=== PATIENT | female | born 1995 | race Caucasian/White ===

== ENCOUNTER 2023-06-03 17:00 | Emergency (ER) | payer MEDICAID, SELFPAY ==
[2023-06-03 17:01] VITALS: BP 125/77; PULSE 87; RESP 18; TEMP 36.3; O2SAT 99
[2023-06-03 17:02] VITALS: BMI 25.9
--- NOTE | 2023-06-03 17:05 | RAD_ITS ---
STUDY: X-RAY - RIGHT ANKLE REASON FOR EXAM: Female, 27 years old. FALL TECHNIQUE: 3 view(s) of the ankle. COMPARISON: None. FINDINGS: Normal visualized distal tibia and fibula. Normal medial and lateral malleoli. Normal tibiotalar articulation and ankle mortise. Normal visualized talus and calcaneus. The visualized subtalar, talonavicular, calcaneocuboid and tarsal articulations are normal. There is no demonstrated fracture. Moderate lateral soft tissue swelling. RAD/Ankle min 3 Views IMPRESSION: No fracture or dislocation. Electronically Signed: Raul Mcmillan MD at 17:17 EDT ,
--- NOTE | 2023-06-03 18:06 | ED.VIS.LOWEX ---
HPI History of Present Illness HPI Narrative: Stepped and twisted her right ankle complaining of pain and swelling at the right lateral ankle since about 3 PM. No prior history of surgery. No other complaints. Chief Complaint: Lower Extremity Injury Informant: patient Occured/Mechanism Mechanism/Context: Yes injury and Yes blunt trauma Onset/Context/Timing Onset: Today Context: Sudden Onset Timing: Continuous Quality of Pain: Dull and Aching Current Severity: Moderate Maximum Severity: Moderate Associated Symptoms Associated Symptoms: Negative for Parasthesia, Weakness or Loss of Funtion Narrative Narrative: 27-year-old healthy female twisted her right ankle ankle. Now having pain and swelling the lateral malleolus. No prior history or surgery. Prior similar symptoms: No Recent Illness/Hospitalization: No PFSH PFSH Medical History ADD (attention deficit disorder) Home Medications NK 06/03/23 [History Last Taken Unknown] Allergy/AdvReac Type Severity Reaction Status Date / Time No Known Allergies Allergy Verified 06/03/23 17:01 Surgical History History of umbilical hernia repair Social History Smoking Status: Never smoker ROS ROS ED ROS Narrative Denies recent illness. Review of Systems ROS Unobtainable: Denies due to encephalopathy Constitutional Constitutional ED: Denies chills or fever(s) Eyes Eyes: Denies blurry vision ENT ENT ED: Denies ear pain Cardiovascular Cardiovascular: Denies chest pain Respiratory/Chest Respiratory/Chest: Denies cough or dyspnea Gastrointestinal Gastrointestinal: Denies abdominal pain Genitourinary Genitourinary ED: Denies dysuria Musculoskeletal Musculoskeletal: Denies arthralgias Integumentary Denies abscess Neurologic Neurologic: Denies headache(s) Psychiatric Psychiatric: Denies anxiety Endocrine Endocrinology: Denies polydipsia Hematologic/Lymphatic Hematologic/Lymphatic: Denies easy bleeding or easy bruising Allergic/Immunologic Allergic/Immunologic ED: Denies mouth swelling or tongue swelling EXAM Physical Exam Narrative Exam Narrative: -year-old female no acute distress. Vital signs stable afebrile. HEENT exam unremarkable. Neck nontender. Back nontender. Lungs clear. Heart regular rhythm. Chest wall and ribs nontender. Abdomen soft nontender. Moving all 4 extremities. Neurovascular intact. Normal range of motion. Specifically right knee nontender. Nonswollen. Right calf nontender. Achilles tendon intact. Right lateral malleolus swollen and tender. Medial malleolus nonswollen nontender. Dorsi and plantarflexion intact. DP pulse intact. Able to wiggle her toes. Normal touch sensation. No tenderness or swelling to the foot. Otherwise exam unremarkable. Const Vital Signs: 06/03/23 17:01 Temperature 97.3 F L Temperature Source Temporal Pulse Rate 87 Respiratory Rate 18 Blood Pressure 125/77 H Blood Pressure Mean 93 Pulse Ox 99 Oxygen Delivery Method Room Air Positive well nourished and well developed; Negative for obese, cachectic, contractures or unkempt General Appearance ED: well developed and NAD; Negative for unkempt, cachectic or contractures Nutritional Appearance: Negative for cachectic or obese HEENT Reports moist mucous membranes normocephalic and atraumatic; Negative for trauma or tenderness Eyes PERRL General Eye ED: Negative for other Neck full ROM and supple Thyroid: Negative for tender Lymph Lymphatic: Negative for other Chest Wall inspection of chest normal and palpation of chest normal Chest: Negative for other Resp normal respiratory effort, no retractions and clear to auscultation bilaterally Effort and Inspection: Negative for pain with movement Auscultation: Negative for rales, rhonchi or wheezes Cardio regular rate, regular rhythm, S1 normal heart sound, S2 normal heart sound and no murmurs GI non-distended and no masses Auscultation: normoactive bowel sounds Palpation: soft Bladder / Kidney Exam: No other Back/Spine no CVA tenderness General Back: Negative for CVA tenderness Cervical Spine: Negative for cervical spine tenderness Thoracic Spine / Upper Back: Negative for thoracic spinal tenderness Lumbar Spine / Lower Back: Negative for lumbar spinal tenderness Extremity full ROM; Negative for normal to inspection Extremity Narrative: Swelling and tenderness to the right lateral malleolus. Achilles tendon intact. DP pulse intact. Foot nontender. Normal sensation. General Extremety ED: Yes edema and weight-bearing difficulty General Extremity: edema and weight-bearing difficulty Neuro oriented x3, CN's II-XII intact bilaterally and moves all extremities Sensorium / Orientation: alert, oriented to person, oriented to place and oriented to time; Negative for orientation impaired Motor Exam: strength 5/5 throughout Psych mental status grossly normal Appearance: Negative for unkempt Speech: No other Mood & Affect: Negative for anxious Skin no wounds Rashes: no rashes Trauma: Negative for abrasion or laceration MDM MDM MDM Narrative Medical decision making narrative: 27-year-old female twisted her right ankle. Has swelling and tenderness. X-ray of the right ankle was obtained. 3 views. Shows soft tissue swelling no fracture. Treated as an ankle sprain. Crutches, Aircast, ice, elevate Motrin. Radiography Diagnostic Testing: Clinical Impression(s) from Imaging Studies Ankle X-Ray 06/03/23 17:05 IMPRESSION: No fracture or dislocation. Electronically Signed: Raul Mcmillan MD at 17:17 EDT , Right ankle x-ray, 3 views, interpreted both by myself and the radiologist shows no acute fracture. No dislocation. There is right lateral malleolus soft tissue swelling. Discharge Plan Triage Chief Complaint: Lower Extremity Injury ED Provider: Armani Balderas Dx/Rx/DC Orders Clinical Impression: Ankle sprain Instructions: ED Sprain Ankle W X Ray Prescriptions: No Action NK Primary Care Provider: NOT,DEFINED Referrals: Rashawn Max MD [Med Staff - Active Staff] - As Needed NOT,DEFINED [Primary Care Provider] - Activity Restrictions/Additional Instructions: Elevate 30 minutes a day 4-5 times a day for the next 3 days. Motrin for pain and swelling. Initially no weightbearing. Then touchdown weightbearing. When you feel comfortable you do not need the crutches. Then use the Aircast. As it improves you can take off the Aircast. This appears to be an ankle sprain. There is no fracture on the x-ray. Follow-up if not improving. Otherwise it should do well. Disposition Disposition: Home, Self Care
== END 2023-06-03 18:36 | disposition home or self-care (01) ==
LOC: ED 18:12
PROVIDERS: Emergency Provider Emergency Medicine; Visit Provider Emergency Medicine
DX: S93.401A Sprain of unspecified ligament of right ankle, initial encounter (principal); X50.1XXA Overexertion from prolonged static or awkward postures, initial encounter
CPT/HCPCS: 73610; 99283